=== PATIENT | female | born 1970 | race Caucasian/White ===

== ENCOUNTER 2021-09-10 09:52 | Outpatient (CLI) | payer MEDICAID, SELFPAY | END 2021-09-10 09:53 | disposition home or self-care (01) | PROVIDERS: PCP Family Medicine; Referring Provider Obstetrics & Gynecology; Visit Provider Surgery | DX: Z12.11 Encounter for screening for malignant neoplasm of colon (principal); K63.5 Polyp of colon; K64.4 Residual hemorrhoidal skin tags; Z83.71 Family history of colonic polyps | CPT/HCPCS: 45385; 88305; 99153; J1200; J2250; J3010 ==

== ENCOUNTER 2022-05-18 15:03 | Outpatient (CLI) | payer MEDICAID, SELFPAY ==
--- NOTE | 2022-05-18 15:20 | CRLHL7_ITS ---
For Patients: As a result of the Cures Act, medical imaging exams and procedure reports are released immediately into your electronic medical record. You may view this report before your referring provider. If you have questions, please contact your health care provider. BILATERAL SCREENING MAMMOGRAM WITH COMPUTER-AIDED DETECTION AND TOMOSYNTHESIS TECHNIQUE: CC and MLO views were obtained. These mammographic images have been obtained using full-field digital technique. These mammographic images were interpreted with the benefit of computer-aided detection. Breast Tomosynthesis was used in this interpretation. COMPARISON FILM: 03/02/21, 12/26/19, 08/29/18. FINDINGS: The breasts are heterogeneously dense, which may obscure small masses IMPRESSION: There is no radiographic evidence for malignancy. ASSESSMENT: BI-RADS Category 1: Negative RECOMMENDATION: Routine screening mammogram in 1 year. A lay language report of this examination will be provided to the patient. Krish Leblanc M.D. Diagnostic Radiologist [email or web address] NIA/amy / be/Dictated by: Krish Leblanc MD @ 05/19/2022 12:48:00 PM (Electronically Signed)
== END 2022-05-18 15:04 | disposition home or self-care (01) ==
LOC: MAMMO 15:04
PROVIDERS: PCP Family Medicine; Visit Provider Family Medicine
DX: Z12.31 Encounter for screening mammogram for malignant neoplasm of breast (principal); R92.2 Inconclusive mammogram
CPT/HCPCS: 77063; 77067

== ENCOUNTER 2022-08-20 13:09 | Outpatient (CLI) | payer MEDICAID, SELFPAY ==
[2022-08-20 16:22] LABS: Chlamydia DNA Amplified* NOT DETECTED (No Detected); GC DNA Amplified* NOT DETECTED (No Detected)
== END 2022-08-20 13:10 | disposition home or self-care (01) ==
PROVIDERS: PCP Family Medicine; Visit Provider Obstetrics & Gynecology
DX: Z01.419 Encounter for gynecological examination (general) (routine) without abnormal findings (principal); E05.90 Thyrotoxicosis, unspecified without thyrotoxic crisis or storm; Z11.3 Encounter for screening for infections with a predominantly sexual mode of transmission
CPT/HCPCS: 82306; 84439; 84443; 84480; 84481; 86592; 86703; 86706; 86803; 87340; 87491; 87591

== ENCOUNTER 2022-10-11 13:11 | Outpatient (REF) | payer MEDICAID, SELFPAY ==
[2022-10-11 16:02] LABS: Free T4 Free Thyroxine* 0.92 ng/dL (0.70-1.85)
[2022-10-11 16:16] LABS: Thyroid Stimulating Hormone* 0.968 uIU/mL (0.270-4.20)
[2022-10-14 10:51] LABS: Free T3 2.3 pg/mL (2.5-4.3)
== END 2022-10-11 13:12 | disposition home or self-care (01) ==
LOC: NPINS 13:11
PROVIDERS: PCP Family Medicine; Visit Provider Internal Medicine Endocrinology, Diabetes & Metabolism
DX: R79.89 Other specified abnormal findings of blood chemistry (principal)
CPT/HCPCS: 84439; 84443; 84481

== ENCOUNTER 2023-05-06 10:20 | Outpatient (CLI) | payer MEDICAID, SELFPAY | END 2023-05-06 10:21 | disposition home or self-care (01) | LOC: NFLDREF 05-17 19:59 | PROVIDERS: PCP Family Medicine; Referring Provider Family Medicine; Visit Provider Family Medicine | DX: Z01.419 Encounter for gynecological examination (general) (routine) without abnormal findings (principal); E05.90 Thyrotoxicosis, unspecified without thyrotoxic crisis or storm; R79.89 Other specified abnormal findings of blood chemistry; Z13.1 Encounter for screening for diabetes mellitus; Z13.6 Encounter for screening for cardiovascular disorders | CPT/HCPCS: 80061; 82947; 84443 ==

== ENCOUNTER 2023-05-12 11:39 | Outpatient (CLI) | payer MEDICAID, SELFPAY | END 2023-05-12 11:40 | disposition home or self-care (01) | PROVIDERS: PCP Family Medicine; Referring Provider Family Medicine; Visit Provider Family Medicine | DX: G40.909 Epilepsy, unspecified, not intractable, without status epilepticus (principal) | CPT/HCPCS: 80177 ==

== ENCOUNTER 2023-05-24 14:29 | Outpatient (CLI) | payer MEDICAID, SELFPAY ==
--- NOTE | 2023-05-24 14:40 | MM_ITS ---
Patient: PABLITO CALI Facility:?[facility] Patient ID:?[id number] Site Patient ID:?[id number]. Site :?1970 Study:?XRay-Breast Bilateral 3D W/CAD-05/24/2023 3:02:47 PM Ordering Physician:Felicity Final Report: BILATERAL SCREENING MAMMOGRAM WITH COMPUTER-AIDED DETECTION AND TOMOSYNTHESIS TECHNIQUE: CC and MLO views were obtained. These mammographic images have been obtained using full-field digital technique. These mammographic images were interpreted with the benefit of computer-aided detection. Breast Tomosynthesis was used in this interpretation. COMPARISON FILM: 05/18/22, 03/02/21, 12/26/19. FINDINGS: The breasts are heterogeneously dense, which may obscure small masses IMPRESSION: There is no radiographic evidence for malignancy. ASSESSMENT: BI-RADS Category 1: Negative RECOMMENDATION: Routine screening mammogram in 1 year. A lay language report of this examination will be provided to the patient. Krish Leblanc M.D. Diagnostic Radiologist [email or web address] NIA/frannie D& Transcribed: 9:26 p.m. JIM/Dictated by: Krish Leblanc MD @ 05/25/2023 12:21:00 PM Signed by:?Krish Leblanc MD @05/26/2023 5:28:03 AM (Electronic Signature)
== END 2023-05-24 14:30 | disposition home or self-care (01) ==
PROVIDERS: PCP Family Medicine; Visit Provider Obstetrics & Gynecology
DX: Z12.31 Encounter for screening mammogram for malignant neoplasm of breast (principal); R92.2 Inconclusive mammogram
CPT/HCPCS: 77063; 77067

== ENCOUNTER 2024-06-19 13:07 | Outpatient (CLI) | payer OTHER, SELFPAY ==
--- NOTE | 2024-06-19 13:20 | CRLHL7_ITS ---
For Patients: As a result of the Century Cures Act, medical imaging exams and procedure reports are released immediately into your electronic medical record. You may view this report before your referring provider. If you have questions, please contact your health care provider. BILATERAL DIGITAL SCREENING MAMMOGRAM WITH COMPUTER-AIDED DETECTION AND TOMOSYNTHESIS CLINICAL HISTORY: Routine screening exam. COMPARISON: 05/24/23, 05/18/22, 03/02/21 TECHNIQUE: Digital mammogram in CC and MLO projections including computer-aided detection (CAD). Tomosynthesis was used in this interpretation. BREAST COMPOSITION: The breasts are heterogeneously dense, which may obscure small masses. FINDINGS: RIGHT Breast: Focal asymmetric density upper-outer contrast 6 cm from the nipple. LEFT Breast: No suspicious findings. IMPRESSION: RIGHT breast asymmetry/mass. RECOMMENDATIONS: Additional mammographic views of the RIGHT breast including 3D spot compression CC/MLO. RIGHT breast ultrasound may also be required. [facility] will contact the patient. A lay language report of this examination will be provided to the patient. BI-RADS Category 0: Incomplete: Need Additional Imaging Evaluation Dictated by Krish Leblanc MD @ 06/27/2024 12:29:15 PM Dictated by: Krish Leblanc MD @ 06/27/2024 12:29:26 (Electronically Signed)
== END 2024-06-19 13:08 | disposition home or self-care (01) ==
LOC: MAMMO 13:08
PROVIDERS: PCP Family Medicine; Visit Provider Family Medicine
DX: Z12.31 Encounter for screening mammogram for malignant neoplasm of breast (principal); R92.333 Mammographic heterogeneous density, bilateral breasts; N63.10 Unspecified lump in the right breast, unspecified quadrant
CPT/HCPCS: 77063; 77067

== ENCOUNTER 2024-07-11 08:28 | Outpatient (CLI) | payer OTHER, SELFPAY ==
--- NOTE | 2024-07-11 08:45 | CRLHL7_ITS ---
For Patients: As a result of the Century Cures Act, medical imaging exams and procedure reports are released immediately into your electronic medical record. You may view this report before your referring provider. If you have questions, please contact your health care provider. DIGITAL DIAGNOSTIC RIGHT MAMMOGRAM USING TOMOSYNTHESIS AND COMPUTER-AIDED DETECTION RIGHT BREAST ULTRASOUND CLINICAL HISTORY: RIGHT breast mass/asymmetry. COMPARISON: 06/19/24, 05/24/23, 05/18/22. TECHNIQUE: Digital RIGHT mammogram in two projections. Tomosynthesis and CAD were used in this interpretation. Real-time ultrasound imaging of RIGHT breast with imaging documentation. BREAST COMPOSITION: The breasts are heterogeneously dense, which may obscure small masses. FINDINGS: 3D spot compression CC/MLO RIGHT breast mammogram images submitted. Decreased conspicuity of previously noted asymmetric density. No architectural distortion. No suspicious calcifications. Targeted RIGHT breast ultrasound performed at 10 o`clock 5 cm from the nipple. Normal fibroglandular tissue. No fibrocystic change or solid mass. IMPRESSION: No suspicious findings. No evidence of malignancy. RECOMMENDATIONS: Routine screening mammography. A lay language report of this examination will be provided to the patient. BI-RADS Category 2: Benign Dictated by Krish Leblanc MD @ 07/11/2024 9:34:28 AM jj/Dictated by: Krish Lelbanc MD @ 07/11/2024 9:34:00 AM (Electronically Signed)
--- NOTE | 2024-07-11 09:15 | CRLHL7_ITS ---
For Patients: As a result of the Cures Act, medical imaging exams and procedure reports are released immediately into your electronic medical record. You may view this report before your referring provider. If you have questions, please contact your health care provider. SEE DIGITAL DIAGNOSTIC RIGHT MAMMOGRAM PERFORMED SAME DAY CRL:hernesto eric/Dictated by: Krish Leblanc MD @ 07/11/2024 9:31:00 AM (Electronically Signed)
== END 2024-07-11 08:29 | disposition home or self-care (01) ==
LOC: MAMMO 08:29
PROVIDERS: PCP Family Medicine; Visit Provider Family Medicine
DX: N63.10 Unspecified lump in the right breast, unspecified quadrant (principal); R92.8 Other abnormal and inconclusive findings on diagnostic imaging of breast
CPT/HCPCS: 76642; 77065; G0279

== ENCOUNTER 2024-08-31 17:05 | Outpatient (CLI) | payer OTHER, SELFPAY ==
--- OUTSIDE RECORDS SUMMARY | 2024-09-03 13:57 | XMS_ITS | Continuity of Care Document ---
Author Organization [place] [facility] [place] Address [address] [place] [address] Assessment No assessment recorded. Plan of Treatment [...] History completed Catia Pickard MD [address] [place], [address], [facility] 05/16/2024 09:29:48 [...] Updated DateTime 08/27/2024 152.4 cm 22.5 kg/m2 25473.12 g JORGE REYES [address], [place], [address], [place] [facility] 08/27/2024 13:08:32 Social History Question Answer Notes LastModified by [employer] [facility] [employer] [facility] Details LastModified Time Tobacco Smoking Status Never Smoker Catia Pickard MD [address], [place], [address], [facility] 05/16/2024 09:29:48 How Many Times Per Week Do You Exercise? 5-7 Times Per Week [email or web address] Information not available 05/16/2024 Sex: Unknown Functional Status Question Answer Note LastModified by [employer] [facility] [employer] Details LastModified Time How many times per week do you consume alcohol? 3-4 times per week [email or web address] Information not available 05/16/2024 What is your level of alcohol consumption? Moderate [email or web address] Information not available 05/16/2024 Are you currently employed? 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 Heavy [email or web address] Information not available 05/16/2024 Mental Status None recorded. Family History Relationship Description Onset Age of this Age Resolved Age Notes LastModified by Organization Details LastModified Time Mother Varicose veins of lower extremity [email or web address] Not available 05/16 09:29:47 Medical History Condition [...] SNOMED-CT Code Diagnosis ICD10 Code Diagnosis Note [id number] JORGE REYES [address] [place] [address] 08/27/2024 12:21:29 08/28/2024 13:30:59 Pain co-occurrent and due to varicose veins of bilateral legs [id number] I83.813 DUPLEX ULTRASOUND FINDINGS: Spectral doppler analysis [...] Proceed with the treatment plan detailed below. [id number] JORGE REYES [address] [place], [place] [address] 08/27/2024 12:21:24 08/28/2024 13:30:52 Pain co-occurrent and due to varicose veins of bilateral legs [id number] I83.813 DUPLEX ULTRASOUND FINDINGS: Spectral doppler analysis [...] Song Member ID Guarantor Name 08/27/2024 1 [facility] - INDIVIDUAL AND FAMILY (HMO) [id number] 1 Colette Duarte [id number] Colette Duarte Notes Date Note Type Note [...] adhesives-3 or more allergies Donna Purvis MD [address] [place], [address], [place] [facility] 08/28/2024 10:03:09 OBGyn Episode No OBEpisode recorded.
--- OUTSIDE RECORDS SUMMARY | 2024-09-03 13:57 | XMS_ITS | Data Portability ---
Author Organization [place] [facility] [place] Address [address] [place] [address] Assessment Encounter Date Assessment Date Assessment LastModified [...] ablation of the left great saphenous vein. 91573. 2. Endovenous radiofrequency ablation of the right great saphenous vein. 27165. 3. Ultrasound guided foam sclerotherapy of the residual incompetent tributaries and varicosities greater than 4.0mm of the right leg (71802, 04886) 2 sessions. Time spent reviewing the patient s medical record, diagnostic studies, performing a focused history and physical exam, educating the patient regarding the natural history of disease as it pertains to the patient, discussing treatment options and alternatives, medical decision making, and chartin-59 minutes. Not available 05/16/2024 17:46:34 05/16/2024 05/16/2024 FINDINGS: Spectr al doppler analysis shows abnormal reflux (>500msec) in the left GSV, right GSV and multiple right tributary veins. The deep veins are patent with normal compressibility and augmentation. There is adequate venous capacity of the deep system. There is no significant tortuosity or aneurysm of the refluxing saphenous veins which would impede catheter advancement. [email or web address] Not available 05/16/2024 17:47:01 08/27/2024 08/27/2024 Time spent reviewing the patient s medical record, diagnostic studies, performing a focused history and physical exam, educating the patient regarding the natural history of disease as it pertains to the patient, discussing treatment options and alternatives, medical decision making, and chartin-39 minutes. [email or web address] Not available 08/27/2024 11:44:37 Plan of Treatment [...] By Organization Details Last Modified Time 08/27/2024 [id number] PROCEDURE RECOMMENDATIONS 1.Endovenous radiofrequency ablation of the left great saphenous vein. 96663. 2. Endovenous radiofrequency ablation of the right great saphenous and anterior saphenous veins. 17663, 27494. 3. Varithena ablation of the residual left great saphenous vein. 88032. 4. Varithena ablation of the residual right great saphenous and anterior saphenous veins. 77189. Not available 08/27/2024 15:59:18 Reason for Referral None Reported. Procedures Surgical History Date Name Laterality Status Provider Name and Address Organization Details Recorded Time No known Surgical History completed Catia Pickard MD [address] [place], [address], [facility] 05/16/2024 09:29:48 Imaging Results [...] Updated DateTime 08/27/2024 152.4 cm 22.5 kg/m2 80453.12 g JORGE REYES [address] [place], [address], [facility] 08/27/2024 13:08:32 Social History Question Answer Notes LastModified by [employer] Details LastModified Time Tobacco Smoking Status Never Smoker Catia Pickard MD [address] [place], [address], [facility] 05/16/2024 09:29:48 How Many Times Per Week Do You Exercise? 5-7 Times Per Week [email or web address] Information not available 05/16/2024 Sex: Unknown Functional Status Question Answer Note LastModified by [employer] Details LastModified Time How many times per week do you consume alcohol? 3-4 times per week [email or web address] Information not available 05/16/2024 What is your level of alcohol consumption? Moderate [email or web address] Information not available 05/16/2024 Are you currently employed? 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 Heavy [email or web address] Information not available 05/16/2024 Mental Status None recorded. Family History Relationship Description Onset Age of this Age Resolved Age Notes LastModified by Organization Details LastModified Time Mother Varicose veins of lower extremity [email or web address] Not available 05/16 09:29:47 Medical History Condition [...] SNOMED-CT Code Diagnosis ICD10 Code Diagnosis Note [id number] MD Irene Drummond [address] [place] [address] 04/23/2024 13:12:44 04/24/2024 15:45:12 Pain co-occurrent and due to varicose veins of left leg [id number] I83.812 Ultrasound Screening Findings: Left GSV refluxing at mid thigh. Right truncal veins and tributary veins WNL at time of screening. [id number] MD Irene Mckeon [address] [place] [address] 05/16/2024 13:51:17 05/17/2024 11:50:09 Varicose veins of lower extremity [id number] I83.812 [id number] MD Irene Mckeon [address] [place] [address] 05/16/2024 13:51:13 05/17/2024 11:52:23 Varicose veins of lower extremity [id number] I83.813 [id number] JORGE REYES [address] [place] [address] 08/27/2024 12:21:29 08/28/2024 13:30:59 Pain co-occurrent and due to varicose veins of bilateral legs [id number] I83.813 DUPLEX ULTRASOUND FINDINGS: Spectral doppler analysis [...] Proceed with the treatment plan detailed below. [id number] JORGE REYES [address] [place] [address] 08/27/2024 12:21:24 08/28/2024 13:30:52 Pain co-occurrent and due to varicose veins of bilateral legs [id number] I83.813 DUPLEX ULTRASOUND FINDINGS: Spectral doppler analysis [...] 1 [employer] - INDIVIDUAL AND FAMILY (HMO) [id number] 1 Colette Duarte [id number] Colette Burris Duarte Notes Date Note Type [...] the following?None Donna Purvis MD [address] [place], [address], [facility] 04/24/2024 11:59:42 05/16/2024 [...] of (Cyanoacrylate Adhesive Ablation screening):-Autoimmun e conditions-Atopic Dermatitis/Eczema-[place] ction to household or medical adhesives-Reaction to nail salon treatment-Reaction to bandage adhesives-3 or more allergies Conservative measures implemented without relief of symptoms:-avoidance of prolonged periods of sitting or standing,-regular exercise including moderate daily walking,-leg elevation,-weight control (stable)-GCS 20-30 mmHg; Rx from screening at [facility] on 04/23; wears daily Catia Pickard MD [address], [place], [address], [place] [facility] 05/16/2024 17:50:25 [...] adhesives-3 or more allergies Donna Purvis MD [address], [place], [address], [place] [facility] 08/28/2024 10:03:09 OBGyn Episode No OBEpisode recorded.
--- OUTSIDE RECORDS SUMMARY | 2024-09-03 13:57 | XMS_ITS | Continuity of Care Document ---
Author Organization [place] [facility] [place] Address [address] [place] [address] Assessment Encounter Date Assessment Date Assessment LastModified by Organization Details LastModified Time 08/27/2024 08/27/2024 Time spent reviewing the patient s medical record, diagnostic studies, performing a focused history and physical exam, educating the patient regarding the natural history of disease as it pertains to the patient, discussing treatment options and alternatives, medical decision making, and chartin-39 minutes. [email or web address] Not available 08/27/2024 11:44:37 Plan of Treatment [...] By Organization Details Last Modified Time 08/27/2024 [id number] PROCEDURE RECOMMENDATIONS 1.Endovenous radiofrequency ablation of the left great saphenous vein. 09441. 2. Endovenous radiofrequency ablation of the right great saphenous and anterior saphenous veins. 47959, 93278. 3. Varithena ablation of the residual left great saphenous vein. 38915. 4. Varithena ablation of the residual right great saphenous and anterior saphenous veins. 03019. [email or web address] Not available 08/27/2024 15:59:18 Reason for Referral None Reported. Procedures Surgical History Date Name Laterality Status Provider Name and Address Organization Details Recorded Time No known Surgical History completed Catia Pickard MD [address] [place], [address], [facility] 05/16/2024 09:29:48 Imaging [...] Updated DateTime 08/27/2024 152.4 cm 22.5 kg/m2 82577.12 g JORGE REYES [address] [place], [address], [facility] 08/27/2024 13:08:32 Social History Question Answer Notes LastModified by [employer] Details LastModified Time Tobacco Smoking Status Never Smoker Catia Pickard MD [address] [place], [address], [facility] 05/16/2024 09:29:48 How Many Times Per Week Do You Exercise? 5-7 Times Per Week [email or web address] Information not available 05/16/2024 Sex: Unknown Functional Status Question Answer Note LastModified by [employer] Details LastModified Time How many times per week do you consume alcohol? 3-4 times per week [email or web address] Information not available 05/16/2024 What is your level of alcohol consumption? Moderate Information not available 05/16/2024 Are you currently employed? 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 Heavy Information not available 05/16/2024 Mental Status None recorded. Family History Relationship Description Onset Age of this Age Resolved Age Notes LastModified by Organization Details LastModified Time Mother Varicose veins of lower extremity Not available 05/16 09:29:47 Medical History Condition [...] SNOMED-CT Code Diagnosis ICD10 Code Diagnosis Note [id number] JORGE REYESvill e [address] [place] [address] 08/27/2024 12:21:29 08/28/2024 13:30:59 Pain co-occurrent and due to varicose veins of bilateral legs [id number] I83.813 DUPLEX ULTRASOUND FINDINGS: Spectral doppler analysis [...] Proceed with the treatment plan detailed below. [id number] JORGE REYES [address] [place] [address] 08/27/2024 12:21:24 08/28/2024 13:30:52 Pain co-occurrent and due to varicose veins of bilateral legs [id number] I83.813 DUPLEX ULTRASOUND FINDINGS: Spectral doppler analysis [...] Song Member ID Guarantor Name 08/27/2024 1 [facility] - INDIVIDUAL AND FAMILY (HMO) [id number] 1 Colette Duarte [id number] Colette Duarte Notes Date Note Type Note [...] adhesives-3 or more allergies Donna Purvis MD [address], [place], [address], [place] [facility] 08/28/2024 10:03:09 OBGyn Episode No OBEpisode recorded.
== END 2024-08-31 17:06 | disposition home or self-care (01) ==
PROVIDERS: PCP Family Medicine; Visit Provider Student in an Organized Health Care Education/Training Program
DX: R42 Dizziness and giddiness (principal); R11.0 Nausea
CPT/HCPCS: A0425; A0427

== ENCOUNTER 2024-08-31 17:41 | Emergency (ER) | payer OTHER, SELFPAY ==
--- OUTSIDE RECORDS SUMMARY | 2024-08-31 17:45 | XMS_ITS | Continuity of Care Document ---
Author Organization [place] [facility] [place] Address [address] [place] [address] Assessment Encounter Date Assessment Date Assessment LastModified by Organization Details LastModified Time 08/27/2024 08/27/2024 Time spent reviewing the patient s medical record, diagnostic studies, performing a focused history and physical exam, educating the patient regarding the natural history of disease as it pertains to the patient, discussing treatment options and alternatives, medical decision making, and chartin-39 minutes. [email or web address] Not available 08/27/2024 11:44:37 Plan of Treatment Reminders Order Date Submit Date Provider Last Modified By Organization Details Last Modified Time Details Appointments [facility] 1 Vein 20 Min 2024 02:00P [facility] Not available Not available Not available [facility] 2 Veins 30 Min 2024 02:30P [facility] Not available Not available Not available Lab None record ed. Referral None record ed. Procedures None record ed. Surgeries None record ed. Imaging None record ed. Medication Orders None record ed. Patient TargetsNo targets recorded. Patient Instructions Encounter Date Encounter Id Patient Instructions Last Modified By Organization Details Last Modified Time 08/27/2024 [id number] PROCEDURE RECOMMENDATIONS 1.Endovenous radiofrequency ablation of the left great saphenous vein. 70649. 2. Endovenous radiofrequency ablation of the right great saphenous and anterior saphenous veins. 99066, 61977. 3. Varithena ablation of the residual left great saphenous vein. 68874. 4. Varithena ablation of the residual right great saphenous and anterior saphenous veins. 78399. [email or web address] Not available 08/27/2024 15:59:18 Reason for Referral None Reported. Procedures Surgical History Date Name Laterality Status Provider Name and Address Organization Details Recorded Time No known Surgical History completed Catia Pickard MD [address] [place], [id number], [facility] 05/16/2024 09:29:48 Imaging Results None recorded. Procedure Notes None recorded. Medical Equipment None Reported. Medications Name Sig Start Date Stop Date Status Note LastModified by Organization Details LastModified Time levetiracetam 500 mg tablet TAKE ONE TABLET BY MOUTH (500MG) TWICE A DAY active Not Available Not Available No t Available paroxetine 20 mg tablet TAKE 1 TABLET BY MOUTH DAILY. active Not Available Not Available No t Available dextroamphetami ne-amphetamine ER 30 mg 24hr capsule,extend release TAKE 1 CAPSULE BY MOUTH DAILY IN THE MORNING active Not Available Not Available No t Available dextroamphetami ne-amphetamine ER 15 mg 24hr capsule,extend release TAKE 1 CAPSULE BY MOUTH DAILY IN THE MORNING (EFFECTI VE DATE 03-15-24) active Not Available Not Available No t Available Vitals Date Recorded Body height Body mass index (BMI) Body weight Provider Name and Address Organization Details Last Updated DateTime 08/27/2024 152.4 cm 22.5 kg/m2 82631.12 g JORGE REYES [address] [place], [address], [facility] 08/27/2024 13:08:32 Social History Question Answer Notes LastModified by [employer] Details LastModified Time Tobacco Smoking Status Never Smoker Catia Pickard MD [address] [place], [address], [facility] 05/16/2024 09:29:48 How Many Times Per Week Do You Exercise? 5-7 Times Per Week [email or web address] Information not available 05/16/2024 Sex: Unknown Functional Status Question Answer Note LastModified by [employer] Details LastModified Time How many times per week do you consume alcohol? 3-4 times per week [email or web address] Information not available 05/16/2024 What is your level of alcohol consumption? Moderate [email or web address] Information not available 05/16/2024 Are you currently employed? 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 Heavy Information not available 05/16/2024 Mental Status None recorded. Family History Relationship Description Onset Age of this Age Resolved Age Notes LastModified by Organization Details LastModified Time Mother Varicose veins of lower extremity [email or web address] Not available 05/16 09:29:47 Medical History Condition Response Neurologic Disorder Y Gynecological History Statement/Question Response How many childrens do you have? 2 Number of Miscarriages 0 Number of Pregnancies 2 Are you or planning to become p regnant? N Are you ? N Obstetrics History GPAL:G 0 P 0 0 0 0 Past Encounters Encounter ID Performer Location Encounter Start Date Encounter Closed Date Diagnosis/Indication Diagnosis SNOMED-CT Code Diagnosis ICD10 Code Diagnosis Note [id number] [address] e [address] [place] [address] 08/27/2024 12:21:29 08/28/2024 13:30:59 Pain co-occurrent and due to varicose veins of bilateral legs 1303468974 [id number] I83.813 DUPLEX ULTRASOUND FINDINGS: Spectral doppler analysis shows abnormal reflux (>500msec) in the left great saphenous vein, right great saphenous and anterior saphenous veins and multiple bilateral tributary veins. The deep veins are patent with normal compressib ility and augmentati on. Bilateral deep venous insufficie ncy is absent. There is adequate venous capacity of the deep system. There is no significan t tortuosity or aneurysm of the refluxing saphenous veins which would impede catheter advancemen t. ASSESSMENT :1)Left lower extremity superficia l chronic venous insufficie ncy of the great saphenous vein and tributary veins with pain and inflammati on affecting activities of daily living. CEAP 3 VCSS 92)Right lower extremity superficia l chronic venous insufficie ncy of the great saphenous and anterior saphenous veins and tributary veins with pain and inflammati on affecting activities of daily living. CEAP 3 VCSS 93) Normal deep venous system without DVT4) The patient has progressio n of symptoms despite conservati ve measures including: daily wear of GCS class II or higher for more than 6 weeks, avoiding long periods of sitting/st anding, regular daily exercise including moderate walking, weight control, OTC analgesics and leg elevation. PLAN:1) Proceed with the treatment plan detailed below. [id number] JORGE REYES [address] [place] [address] 08/27/2024 12:21:24 08/28/2024 13:30:52 Pain co-occurrent and due to varicose veins of bilateral legs [id number] I83.813 DUPLEX ULTRASOUND FINDINGS: Spectral doppler analysis shows abnormal reflux (>500msec) in the left great saphenous vein, right great saphenous and anterior saphenous veins and multiple bilateral tributary veins. The deep veins are patent with normal compressib ility and augmentati on. Bilateral deep venous insufficie ncy is absent. There is adequate venous capacity of the deep system. There is no significan t tortuosity or aneurysm of the refluxing saphenous veins which would impede catheter advancemen t. Health Concerns Section Related Observation LastModified by Organization Detai ls LastModified Time None Recorded Concern Status LastModified by Organization Details LastModified Time None Recorded Payers Encounter Date Sequence Insurance Name Policy Number Policy Song Covered Member ID Song Member ID Guarantor Name 08/27/2024 1 [facility] (HMO) [id number] 1 Colette Duatre [id number] Colette Duarte Notes Date Note Type Note Provider Name and Address Organization Details Recorded Time 08/27/2024 text/html The patient is a 53 yo female who presents with complaints of bilateral lower extremity varicose veins and increasing symptoms for the past > 5 years. Symptoms include: pain, aching, cramping, itching, recurring swelling, spider veins, surface veins, varicose veins. The patient presents after a 6 week trial of conservative therapy including: daily exercise including moderate walking, weight control, leg elevation, OTC analgesic (eg NSAID) use prn and daily wear of Rx GCS 20-30 mm Hg. The patient reports minimal relief of symptoms with these measures. There is no history of DVT, SVT, ulceration, cellulitis or phleborrhagia. Symptom location: Bilateral thighSymptom severity: /10; moderately severeSymptoms occur with: prolonged sitting and standing, and during/after activity/exercise. ADLs affected by symptoms:-Exercise/a ctivity: limit ability to exercise, including walking.-Work: Needs to take frequent breaks to walk and/or elevate legs.-Chores: Avoids activities or needs to take breaks to walk and/or elevate.-Leisure activities: Avoids activities or needs to take breaks to walk and/or elevate. Patient denies history of (Cyanoacrylate Adhesive Ablation screening):-Autoimmu ne conditions-Atopic Dermatitis/Eczema-Re action to household or medical adhesives-Reaction to nail salon treatment-Reaction to bandage adhesives-3 or more allergies Donna Purvis MD [address] [place], [place], [address], [place] [facility] 08/28/2024 10:03:09 OBGyn Episode No OBEpisode recorded.
--- OUTSIDE RECORDS SUMMARY | 2024-08-31 17:45 | XMS_ITS | Data Portability ---
Author Organization [place] [facility] [place] Address [address] [place] [address] Assessment Encounter Date Assessment Date Assessment LastModified by Organization Details LastModified Time 05/16/2024 05/16/2024 FINDINGS: Spectr al doppler analysis shows abnormal reflux (>500msec) in the left GSV, right GSV and multiple right tributary veins. The deep veins are patent with normal compressibility and augmentation. There is adequate venous capacity of the deep system. There is no significant tortuosity or aneurysm of the refluxing saphenous veins which would impede catheter advancement. 1)Left lower extremity superficial chronic venous insufficiency of the tributary veins with pain and inflammation affecting activities of daily living. CEAP 3, VCSS 6 2)Right lower extremity superficial chronic venous insufficiency of the GSV and tributary veins with pain and inflammation affecting activities of daily living. CEAP 3, VCSS 8 3) Normal deep venous system without DVT 4) The patient has progression of symptoms despite conservative measures including: avoiding long periods of sitting/standing, regular daily exercise including moderate walking, weight control, and leg elevation. PLAN: 1)Begin 6 week trial of conservative therapy with the addition of GCS 20-30mm Hg. GCS Rx provided today. If symptoms persist, proceed with the treatment plan detailed below. PROCEDURE RECOMMENDATIONS 1.Endovenous radiofrequency ablation of the left great saphenous vein. 78649. 2. Endovenous radiofrequency ablation of the right great saphenous vein. 53489. 3. Ultrasound guided foam sclerotherapy of the residual incompetent tributaries and varicosities greater than 4.0mm of the right leg (79082, 85762) 2 sessions. Time spent reviewing the patient s medical record, diagnostic studies, performing a focused history and physical exam, educating the patient regarding the natural history of disease as it pertains to the patient, discussing treatment options and alternatives, medical decision making, and chartin-59 minutes. [email or web address] Not available 05/16/2024 17:46:34 05/16/2024 05/16/2024 FINDINGS: Spectr al doppler analysis shows abnormal reflux (>500msec) in the left GSV, right GSV and multiple right tributary veins. The deep veins are patent with normal compressibility and augmentation. There is adequate venous capacity of the deep system. There is no significant tortuosity or aneurysm of the refluxing saphenous veins which would impede catheter advancement. [email or web address] Not available 05/16/2024 17:47:01 08/27/2024 08/27/2024 Time spent reviewing the patient s medical record, diagnostic studies, performing a focused history and physical exam, educating the patient regarding the natural history of disease as it pertains to the patient, discussing treatment options and alternatives, medical decision making, and chartin-39 minutes. [email or web address] Not available 08/27/2024 11:44:37 Plan of Treatment [...] By Organization Details Last Modified Time 08/27/2024 [id number] PROCEDURE RECOMMENDATIONS 1.Endovenous radiofrequency ablation of the left great saphenous vein. 44650. 2. Endovenous radiofrequency ablation of the right great saphenous and anterior saphenous veins. 40815, 89423. 3. Varithena ablation of the residual left great saphenous vein. 54722. 4. Varithena ablation of the residual right great saphenous and anterior saphenous veins. 14144. [email or web address] Not available 08/27/2024 15:59:18 Reason for Referral None Reported. Procedures Surgical History Date Name Laterality Status Provider Name and Address Organization Details Recorded Time No known Surgical History completed Catia Pickard MD [address] [place], [address], [facility] 05/16/2024 09:29:48 Imaging Results None [...] Updated DateTime 08/27/2024 152.4 cm 22.5 kg/m2 39981.12 g JORGE REYES [address] [place], [address], [facility] 08/27/2024 13:08:32 Social History Question Answer Notes LastModified by [employer] Details LastModified Time Tobacco Smoking Status Never Smoker Catia Pickard MD [address] [place], [address], [facility] 05/16/2024 09:29:48 How Many Times Per Week Do You Exercise? 5-7 Times Per Week Information not available 05/16/2024 Sex: Unknown Functional Status Question Answer Note LastModified by [employer] Details LastModified Time How many times per week do you consume alcohol? 3-4 times per week [email or web address] Information not available 05/16/2024 What is your level of alcohol consumption? Moderate [email or web address] Information not available 05/16/2024 Are you currently employed? 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 Heavy [email or web address] Information not available 05/16/2024 Mental Status None recorded. Family History Relationship Description Onset Age of this Age Resolved Age Notes LastModified by Organization Details LastModified Time Mother Varicose veins of lower extremity [email or web address] Not available 05/16 09:29:47 Medical History Condition [...] SNOMED-CT Code Diagnosis ICD10 Code Diagnosis Note [id number] MD Irene Drummond [address],[place] [address] [place] [address] 04/23/2024 13:12:44 04/24/2024 15:45:12 Pain co-occurrent and due to varicose veins of left leg [id number] 1984135 I83.812 Ultrasound Screening Findings: Left GSV refluxing at mid thigh. Right truncal veins and tributary veins WNL at time of screening. [id number] MD Irene Mckeon [address],[place] [address] [place] [address] 05/16/2024 13:51:17 05/17/2024 11:50:09 Varicose veins of lower extremity 92382458 I83.812 [id number] MD Irene Mckeon [address],[place] [address] [place] [address] 05/16/2024 13:51:13 05/17/2024 11:52:23 Varicose veins of lower extremity 58487720 I83.813 [id number] JORGE REYES [address],[place] [address] [place] [address] 08/27/2024 12:21:29 08/28/2024 13:30:59 Pain co-occurrent and due to varicose veins of bilateral legs [id number] I83.813 DUPLEX ULTRASOUND FINDINGS: Spectral doppler analysis [...] Proceed with the treatment plan detailed below. [id number] JORGE REYES [address],[place] [address] [place] [address] 08/27/2024 12:21:24 08/28/2024 13:30:52 Pain co-occurrent and due to varicose veins of bilateral legs [id number] I83.813 DUPLEX ULTRASOUND FINDINGS: Spectral doppler analysis [...] by Organization Details LastModified Time None Recorded Advance Directives Directive None Recorded Payers Insurance Date Sequence Insurance Name Policy Number Policy Song Covered Member ID Song Member ID Guarantor Name 08/24/2024 1 [employer] - INDIVIDUAL AND FAMILY (HMO) [id number] 1 oClette Duarte [id number] Colette Burris Duarte Notes Date Note Type Note Provider Name and Address Organization Details Recorded Time 04/23/2024 text/html PVC (Q4U) InitialReported bypatient.Please select the location of your concernRight Leg: Thigh; Left Leg: Thigh; Back of knee both legs I have had symptoms:More than 5 year Have you ever experienced any of the following symptoms?Aching;Cramp ing;Itching;Numbness/ Tingling;Swelling;Ski n discoloration;Rash;Sp ider veins;Bulging veins When do the symptoms occur?Sitting;Standin g up;After exercise;During exercise What activities of daily living do the symptoms affect?Exercise;Work; Chores;Leisure Activities What relieves your symptoms?None Have you ever been prescribed medical grade compression stockings?No Have you ever had a previous vein evaluation or treatment?No Have you ever been diagnosed with the following?None Donna Purvis MD [address] [place], [address], [facility] 04/24/2024 11:59:42 05/16/2024 text/html The patient is a 53 yo female who presents with complaints of bilateral lower extremity varicose veins and increasing symptoms for the past > 5 years. Symptoms include: pain, aching, cramping, itching, recurring swelling, spider veins, surface veins, varicose veins. There is no history of DVT, SVT, ulceration, cellulitis or phleborrhagia. Symptom location: Bilateral thighSymptom severity: 7/10; moderately severeSymptoms occur with: prolonged sitting and standing, and during/after activity/exercise. ADLs affected by symptoms:-Exercise/ac tivity: limit ability to exercise, including walking.-Work: Needs to take frequent breaks to walk and/or elevate legs.-Chores: Avoids activities or needs to take breaks to walk and/or elevate.-Leisure activities: Avoids activities or needs to take breaks to walk and/or elevate. Patient denies history of (Cyanoacrylate Adhesive Ablation screening):-Autoimmun e conditions-Atopic Dermatitis/Eczema-Dunnegan ction to household or medical adhesives-Reaction to nail salon treatment-Reaction to bandage adhesives-3 or more allergies Conservative measures implemented without relief of symptoms:-avoidance of prolonged periods of sitting or standing,-regular exercise including moderate daily walking,-leg elevation,-weight control (stable)-GCS 20-30 mmHg; Rx from screening at [facility] on 04/23; wears daily Catia Pickard MD [address], [place], [address], [place] [facility] 05/16/2024 17:50:25 08/27/2024 text/html The patient is a 53 [...] or phleborrhagia. Symptom location: Bilateral thighSymptom severity: 10; moderately severeSymptoms occur with: prolonged sitting and standing, and during/after activity/exercise. ADLs affected by symptoms:-Exercise/ac tivity: limit ability to exercise, including walking.-Work: Needs to take frequent breaks to walk and/or elevate legs.-Chores: Avoids activities or needs to take breaks to walk and/or elevate.-Leisure activities: Avoids activities or needs to take breaks to walk and/or elevate. Patient denies history of (Cyanoacrylate Adhesive Ablation screening):-Autoimmun e conditions-Atopic Dermatitis/Eczema-Olive ction to household or medical adhesives-Reaction to nail salon treatment-Reaction to bandage adhesives-3 or more allergies Donna Purvis MD [address], [place], [address], [place] [facility] 08/28/2024 10:03:09 OBGyn Episode No OBEpisode recorded.
--- OUTSIDE RECORDS SUMMARY | 2024-08-31 17:45 | XMS_ITS | Continuity of Care Document ---
Author Organization [place] [facility] [place] Address [address] [place] [address] Assessment No assessment recorded. Plan of Treatment Reminders Order Date Submit [...] record ed. Patient TargetsNo targets recorded. Patient InstructionsNo instructions recorded. Reason for Referral None Reported. Procedures Surgical History Date Name Laterality Status Provider Name and Address Organization Details Recorded Time No known Surgical History completed Catia Pickard MD [address] [place], [address], [facility] 05/16/2024 09:29:48 Imaging Results [...] Updated DateTime 08/27/2024 152.4 cm 22.5 kg/m2 64848.12 g JORGE REYES [address], [place], [address], [place] [facility] 08/27/2024 13:08:32 Social History Question Answer Notes LastModified by [employer] Details LastModified Time Tobacco Smoking Status Never Smoker Catia Pickard MD [address], [place], [address], [facility] 05/16/2024 09:29:48 How Many Times Per Week Do You Exercise? 5-7 Times Per Week [email or web address] Information not available 05/16/2024 Sex: Unknown Functional Status Question Answer Note LastModified by [employer] Details LastModified Time How many times per week do you consume alcohol? 3-4 times per week [email or web address] Information not available 05/16/2024 What is your level of alcohol consumption? Moderate Information not available 05/16/2024 Are you currently employed? 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 Heavy [email or web address] Information not available 05/16/2024 Mental Status None recorded. Family History Relationship Description Onset Age of this Age Resolved Age Notes LastModified by Organization Details LastModified Time Mother Varicose veins of lower extremity [email or web address] Not available 05/16 09:29:47 Medical History Condition [...] SNOMED-CT Code Diagnosis ICD10 Code Diagnosis Note [id number] OJRGE REYES [address],[place] [address] [place] [address] 08/27/2024 12:21:29 08/28/2024 13:30:59 Pain co-occurrent and due to varicose veins of bilateral legs [id number] I83.813 DUPLEX ULTRASOUND FINDINGS: Spectral doppler analysis [...] Proceed with the treatment plan detailed below. [id number] JORGE REYES [address],[place] [address] [place], [place] [address] 08/27/2024 12:21:24 08/28/2024 13:30:52 Pain co-occurrent and due to varicose veins of bilateral legs [id number] I83.813 DUPLEX ULTRASOUND FINDINGS: Spectral doppler analysis [...] Song Member ID Guarantor Name 08/27/2024 1 [facility] - INDIVIDUAL AND FAMILY (HMO) [id number] 1 Colette Duarte [id number] Colette Duarte Notes Date Note Type Note [...] adhesives-3 or more allergies Donna Purvis MD [address] [place], [address], [place] [facility] 08/28/2024 10:03:09 OBGyn Episode No OBEpisode recorded.
[2024-08-31 17:47] VITALS: BP 156/102; PULSE 80; RESP 18; O2SAT 100
--- NOTE | 2024-08-31 17:58 | ED.GENADULT ---
HPI - General Adult General Date Seen: 08/31/24 Chief complaint: Weakness Stated complaint: dizziness Time Seen by Provider: 08/31/24 17:44 History of Present Illness HPI narrative: Patient is a 54-year-old woman with a history of vertigo as well as a very remote history of seizure, presents for evaluation of feeling generally weak and dizzy. 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 She started to feel poorly, she says her whole body felt dizzy, she says that is the only way she can really describe it. Initially she denied symptoms of vertigo, spinning, imbalance, she said she just felt lightheaded. She presented initially to urgent care where she said she had to lay on the floor because if she was upright or trying to move she felt awful. Ultimately she was transferred here by ambulance. She had some fluids and had some Zofran. She says as long as she lay still she does not feel too badly but if she looks around her she tries to get up she feels poorly, and now she is wondering if this just actually is vertigo. She denies any headache, chest pain, difficulty breathing, she has not had any vomiting or diarrhea, no black or bloody stools, no fevers. Medications are reviewed, she does not have any recent medication changes. She does not smoke or drink significantly, did have some red wine last night. Related Data Home Medications ?Medication ?Instructions ?Recorded ?Confirmed dextroamphetamine-amphetamine 10 1 tab PO BID PRN 05/11/23 08/31/24 mg tablet dextroamphetamine-amphetamine ER 1 cap PO DAILY 05/11/23 08/31/24 30 mg 24hr capsule,extend release (Adderall XR) paroxetine HCl 20 mg tablet 20 mg PO DAILY 05/11/23 08/31/24 Previous Rx's ?Medication ?Instructions ?Recorded levetiracetam 500 mg tablet 500 mg PO BID #60 tabs 04/13/24 meclizine 25 mg tablet 25 mg PO TID PRN #15 tabs 08/31/24 Allergies Allergy/AdvReac Type Severity Reaction Status Date / Time No Known Drug Allergies Allergy Verified 08/31/24 17:53 Review of Systems Status of ROS: Reports: 10 or more systems reviewed and unremarkable except as noted in History and below [facility] Medical History Piriformis syndrome ?G57.00 - Lesion of sciatic nerve, unspecified lower limb (ICD-10) Exposure to severe acute respiratory syndrome coronavirus 2 (SARS-CoV-2) ?Z20.822 - Contact with and (suspected) exposure to COVID-19 (ICD-10) Family History Mother Anxiety disorder High blood pressure Myocardial infarction, Onset Age: 50 Maternal Grandmother Breast cancer, Onset Age: 88 Hodgkin lymphoma Father Parkinson's disease Stroke Social History Narrative: , 2 daughters (14, 10), elderly parents live in same house, 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 exercise regularly- 6/7 days non-smoker social drinker- 3-4/week What is your current living situation?: I presently have a place to live Problems where you live: no known problems In the past 12 months, utilities in danger of being shut off: no In past 12 months, lack of transportation kept you from medical appts, meetings, work, or getting things needed for daily living: no In the past 12 mos, have been you worried that your food would run out before you had money to buy more?: sometimes true In the past 12 mos, the food you bought just didn't last and you didn't have money to buy more?: never true Smoking Status: Never smoker How often does anyone, including family, friends and others, physically hurt you: never How often does anyone, including family, friends and others, insult or talk down to you: never How often does anyone, including family, friends and others, threaten you with harm: never How often does anyone, including family, friends and others, scream or curse at you: never Health Related Social Needs: food insecurity (Z59.41) Exam Narrative: Exam Narrative: Vital signs reviewed In general, alert, nontoxic woman. Head: Normocephalic, atraumatic. Eyes: Sclera clear. Pupils equal and reactive. Extraocular movements are full, she did not have nystagmus on leftward gaze, difficult to assess on rightward gaze as she immediately shot her eyes. Symptoms were exacerbated by looking to the right. ENT: Mucous membranes moist. TMs normal bilaterally. Tongue midline. Neck: Supple without adenopathy. Heart: Regular rate and rhythm without murmur. Lungs: Clear. No increased work of breathing, crackles or wheezes. Abdomen: Soft, nontender to palpation. Extremities: Well perfused, pulses intact. No significant edema. Neurologic: Alert, conversant. Speech fluent, face symmetric. Moves all extremities equally. Cerebellar function intact by finger-nose testing and heel-mcnamara testing, no ataxia. Stable. Skin: Warm, dry well perfused. Affect: Normal. Const: Vital Signs, click to edit/add: Vital Signs - 24 hr 08/31/24 17:47 Pulse Rate [Pulse Oximeter] 80 Respiratory Rate 18 Blood Pressure [Ri ght Upper Arm] 156/102 H Pulse Oximetry 100 Oxygen Delivery Me thod Room Air Course Course ED Course: She was comfortable lying in the bed, I did have her set up and then stand, this caused her symptoms to recur. We checked a blood pressure and she remained mildly hypertensive, blood pressure was around 141/100 standing, it was 156/102 when she arrived. Overall, I think her presentation is most likely to be related to positional vertigo. I do not find anything on exam to suggest other neurologic deficit, I think likelihood of stroke is low. I reviewed an EKG from urgent care and this shows no acute ischemia, though acute coronary syndrome is on the differential. Will check a troponin. Symptoms started a number of hours ago and I think if the single troponin is negative we can adequately rule that out. We will also evaluate for metabolic derangement, dehydration etcetera. Labs reviewed and entirely normal. She feels markedly improved after medications, dizziness is resolved, she is able to move her head without difficulty and is able to walk. She is comfortable with discharge, reviewed that often these symptoms improve over few days but if not follow up with primary care early next week. I prescribed Zofran and meclizine for home symptom control. Return any time if worsening, new severe symptoms, unable to manage at home. Vital Signs Vital signs: Initial Vital Signs Temperature Source Temporal Artery Scan 08/31/24 17:47 Pulse Rate 80 08/31/24 17:47 Respiratory Rate 18 08/31/24 17:47 Blood Pressure 156/102 H 08/31/24 17:47 Blood Pressure Mean 120 H 08/31/24 17:47 Blood Pressure Position Semi-Fowlers 08/31/24 17:47 Pulse Oximetry 100 08/31/24 17:47 Oxygen Delivery Method Room Air 08/31/24 17:47 Vital Signs Pulse Rate 80 08/31/24 17:47 Respiratory Rate 18 08/31/24 17:47 Blood Pressure 156/102 H 08/31/24 17:47 Pulse Oximetry 100 08/31/24 17:47 Oxygen Delivery Method Room Air 08/31/24 17:47 Pulse Rate 80 08/31/24 17:47 Respiratory Rate 18 08/31/24 17:47 Blood Pressure 156/102 H 08/31/24 17:47 Pulse Oximetry 100 08/31/24 17:47 Oxygen Delivery Method Room Air 08/31/24 17:47 Medications Administered Medications: Discontinued Medications Generic Name Dose Route Start Last Admin Trade Name Freq PRN Reason Stop Dose Admin Diazepam 5 mg 08/31/24 17:54 08/31/24 18:35 Diazepam 5 Mg/Ml Inj IV 08/31/24 17:55 5 mg ONCE ONE Administration Sodium Chloride 1,000 mls @ 1,000 mls/hr 08/31/24 18:00 08/31/24 18:37 0.9 % Sodium Chloride 1000 Ml IV 08/31/24 18:59 1,000 mls/hr .Q1H CUONG Administration Meclizine HCl 25 mg 08/31/24 17:54 08/31/24 18:37 Meclizine Hcl 25 Mg Tablet PO 08/31/24 17:55 25 mg ONCE ONE Administration Medical Decision Making Lab Data Labs: Lab Results 08/31/24 Range/Units 18:14 WBC 6.13 (4.50-11.00) K/uL RBC 3.86 L (4.00-5.20) m/uL Hgb 12.0 (12.0-16.0) gm/dL Hct 35.5 (33.0-51.0) % MCV 92 (80-100) fL MCH 31 (26-34) pg MCHC 34 (32-36) gm/dL RDW Coeff of Dar 12.6 (11.5-15.5) % Plt Count 285 (140-440) K/uL Neut % (Auto) 56.5 (42.0-72.0) % Lymph % (Auto) 33.4 (20-44) % Roosevelt % (Auto) 8.5 (0.0-11.0) % Eos % (Auto) 0.8 (0.0-7.0) % Baso % (Auto) 0.8 (0.0-3.0) % Neut # (Auto) 3.46 (1.7-7.0) K/uL Lymph # (Auto) 2.05 (0.90-2.90) K/uL Roosevelt # (Auto) 0.50 (0.00-0.90) K/UL Eos # (Auto) 0.05 (0.00-0.50) K/uL Baso # (Auto) 0.05 (0.00-0.30) K/uL Abs Immat Gran (auto) 0.00 (0.00-0.30) K/uL Imm/Tot Granulo (auto) 0.0 % Sodium 136 (135-149) mmol/L Potassium 3.7 (3.6-5.1) mmol/L Chloride 104 (96-114) mmol/L Carbon Dioxide 25 (20-32) mmol/L Anion Gap 7 (7-15) mEq/L BUN 16 (7-30) mg/dL Creatinine 0.6 (0.5-1.5) mg/dL Estimated GFR 107 ml/min Glucose 107 (60-115) mg/dL Calcium 8.6 (8.4-10.6) mg/dL Discharge Plan Discharge Clinical Impression: Positional vertigo Patient Disposition: Home, Self-Care Condition: Improved Instructions: Benign Paroxysmal Positional Vertigo (ED) Additional Instructions: You can use Zofran if needed for nausea, meclizine if needed for dizziness. Primary care follow-up early next week if you do not feel you are gradually improving. If you feel you are worse, if you have new symptoms, are unable to walk, have vomiting despite treatment, or otherwise not able to manage at home, return to the ER at any time. Prescriptions: New meclizine 25 mg tablet 25 mg PO TID PRNQty: 15 0RF No Action paroxetine HCl 20 mg tablet 20 mg PO DAILY dextroamphetamine-amphetamine [Adderall XR] 30 mg capsule,extended release 24hr 1 cap PO DAILY dextroamphetamine-amphetamine 10 mg tablet 1 tab PO BID PRN levetiracetam 500 mg tablet 500 mg PO BID Qty: 60 2RF Follow Up/Referrals: Washington Vyas MD [Primary Care Provider, Family Practice] Stand Alone Forms: [employer] Info Instructions
[2024-08-31 18:30] LABS: Basophils Absolute Auto 0.05 K/uL (0.00-0.30); Basophils Percent Auto 0.8 % (0.0-3.0); Eosinophils Absolute Auto 0.05 K/uL (0.00-0.50); Eosinophils Percent Auto 0.8 % (0.0-7.0); Hematocrit 35.5 % (33.0-51.0); Lymphocytes Absolute Auto 2.05 K/uL (0.90-2.90); Lymphocytes Percent Auto 33.4 % (20-44); Mean Corpuscular HGB Conc 34 gm/dL (32-36); Mean Corpuscular Hemoglobin 31 pg (26-34); Mean Corpuscular Volume 92 fL (80-100); Monocytes Percent Auto 8.5 % (0.0-11.0); Neutrophils Absolute Auto 3.46 K/uL (1.7-7.0); Neutrophils Percent Auto 56.5 % (42.0-72.0); Platelet Count* 285 K/uL (140-440); RDW Coefficient of Variation % 12.6 % (11.5-15.5); Red Blood Count 3.86 m/uL (4.00-5.20); White Blood Count* 6.13 K/uL (4.50-11.00)
[2024-08-31 18:32] LABS: Chloride* 104 mmol/L (96-114); Potassium* 3.7 mmol/L (3.6-5.1); Sodium* 136 mmol/L (135-149)
[2024-08-31 18:33] LABS: Slide Review Reflex No
[2024-08-31 18:35] LABS: Anion Gap 7 mEq/L (7-15); Blood Urea Nitrogen* 16 mg/dL (7-30); Calcium* 8.6 mg/dL (8.4-10.6); Carbon Dioxide* 25 mmol/L (20-32); Creatinine* 0.6 mg/dL (0.5-1.5); Estimated Glomerular Filt Rate 107 ml/min; Glucose* 107 mg/dL (60-115)
[2024-08-31] MEDS: diazePAM 5 MG/ML inj IV (18:35)
[2024-08-31] MEDS: 0.9 % SODIUM CHLORIDE 1000 ml 1,000 ML IV (18:37)
[2024-08-31] MEDS: MECLIZINE HCL 25 MG TABLET PO (18:37)
== END 2024-08-31 20:07 | disposition home or self-care (01) ==
PROVIDERS: Emergency Provider Emergency Medicine; PCP Family Medicine
DX: H81.11 Benign paroxysmal vertigo, right ear (principal)
CPT/HCPCS: 36415; 80048; 85025; 93005; 96374; 99284; A9270; J3360; J7030

== ENCOUNTER 2024-10-04 08:05 | Outpatient (CLI) | payer OTHER, SELFPAY | END 2024-10-04 08:06 | disposition home or self-care (01) | LOC: NFLDREF 10-05 15:03 | PROVIDERS: PCP Family Medicine; Referring Provider Family Medicine; Visit Provider Family Medicine | DX: G40.909 Epilepsy, unspecified, not intractable, without status epilepticus (principal); E78.5 Hyperlipidemia, unspecified; E05.90 Thyrotoxicosis, unspecified without thyrotoxic crisis or storm; Z79.899 Other long term (current) drug therapy | CPT/HCPCS: 80061; 80177; 84443 ==